=== PATIENT | male | born 1995 | race African-American/Black ===

== ENCOUNTER 2022-09-23 11:24 | Inpatient (IN) | payer OTHER ==
[2022-09-23] VITALS (8 sets, daily range): BP systolic 88–107; BP diastolic 42–72
[~2022-09-23] VITALS: Ht 175.3 cm; Wt 74.4 kg
--- NOTE | 2022-09-23 11:30 | NUR ---
[facility] FOR [facility]CROD[facility] AND WAS INTUBATED FOR PROCEDURE, EXTUBATED 3 HOURS AGO AND DESATTED AND COUGHING BLOOD. PLACED IN BED, AAOX4, SATURATING AT 100% WITH 15LIT O2 VIA NRM.
--- NOTE | 2022-09-23 11:40 | NUR ---
BLOOD DRAWN AND SENT TO LAB
[2022-09-23 12:25] LABS: BASOPHILS % (AUTO) 0.1 % (0.0-2.0); HEMATOCRIT 48 % (39-51); HEMOGLOBIN 15.6 g/dL (13.5-17.5); LYMPHOCYTES # (AUTO) 1.1 K/uL (0.8-4.8); LYMPHOCYTES % (AUTO) 6.5 % (20.0-44.0); MEAN CORPUSCULAR HGB CONC 32 g/dl (31.0-36.0); MEAN CORPUSCULAR VOLUME 98 fL (80-96); MONOCYTES # (AUTO) 0.4 K/uL (0.1-1.30); MONOCYTES % (AUTO) 2.1 % (2.0-12.0); NEUTROPHILS # (AUTO) 15.1 K/uL (1.8-8.9); NEUTROPHILS % (AUTO) 91.3 % (43.0-81.0); PLATELET COUNT (AUTO) 224 K/uL (150-450); RED BLOOD CELL COUNT(AUTO) 4.91 MIL/uL (4.5-6.0); WHITE BLOOD COUNT (AUTO) 16.6 K/uL (4.3-11.0)
[2022-09-23] MEDS ORDERED: MORPHINE SULFATE INJ 4 MG/ML DISP.SYRIN ONE (12:30)
[2022-09-23] MEDS ORDERED: FUROSEMIDE 40 MG/4 ML VIAL IV ONE (12:30)
[2022-09-23] MEDS ORDERED: MORPHINE SULFATE INJ 2 MG/ML DISP.SYRIN IV ONE (12:30)
[2022-09-23] MEDS ORDERED: FUROSEMIDE 40 MG/4 ML VIAL ONE (12:30)
[2022-09-23 12:37] LABS: ABG BASE EXCESS -0.8 mmol/L; ABG OXYGEN SATURATION 98.7 % (92.0-98.5); ABG PH 7.356 (7.350-7.450); ABG PO2 143.1 mmHg (75.0-100.0); AaDO2 523.9 mmHg; MetHb 0.4 % (0.0-1.5); O2Hb 97.3 % (94.0-97.0); SITE, ABG Right Radial; VENT MODE, BG NRB 15 LPM
[2022-09-23 12:41] LABS: CALCIUM, SERUM 8.4 mg/dL (8.5-10.1); POTASSIUM 4.1 mmol/L (3.5-5.1)
--- NOTE | 2022-09-23 12:56 | NUR ---
MOVE SHEET SUBMITTED.
--- NOTE | 2022-09-23 13:13 | NUR ---
[facility] PAGED. AWAITING CALL BACK.
--- NOTE | 2022-09-23 13:34 | NUR ---
SWAB FOR COVID19 SENT TO LAB
[2022-09-23] MEDS ORDERED: MAGNESIUM HYDROXIDE 30 ML UDC PO PRN (15:00)
[2022-09-23] MEDS ORDERED: ONDANSETRON HCL/PF 4 MG/2 ML VIAL IVP PRN (15:00)
[2022-09-23] MEDS ORDERED: MAG HYDROX/AL HYDROX/SIMETH 30 ML UDC PO PRN (15:00)
[2022-09-23] MEDS ORDERED: FUROSEMIDE 20 MG/2 ML VIAL IV ONE (15:00)
[2022-09-23] MEDS ORDERED: Z GUARD REMEDY 4 OZ OINT TP PRN (15:00)
[2022-09-23] MEDS ORDERED: ZOLPIDEM TARTRATE 5 MG TABLET PO PRN (15:00)
[2022-09-23] MEDS ORDERED: ACETAMINOPHEN 325 MG TABLET PO PRN (15:00)
--- NOTE | 2022-09-23 15:55 | NUR ---
RT Placed pt on BIPAP on settings as noted per MD orders post ABG. Pt able to remove mask on his own. Requested to take a break from machine. Pt placed back on NC. No SOB noted at this time. Will continue to monitor
[2022-09-23] MEDS ORDERED: ACETAMINOPHEN 325 MG TABLET ONE (16:09)
--- NOTE | 2022-09-23 16:12 | NUR ---
GOT BED 263.
--- NOTE | 2022-09-23 16:30 | NUR ---
REPORT GIVEN TO YENNIFER MOLINA ROOM 263 FOR CONNOR
--- NOTE | 2022-09-23 16:55 | NUR ---
RN NOTE: ADMISSION PT AND REPORT RECEIVED FROM ED. PT STABLE AT THIS TIME. PT TRANSFERRED WITH ALL BELONGINGS AND IS IN ROOM #263. PT IS ON NC 6L TOLERATING WELL WITH NO SIGNS OF DISTRESS OR LABORED BREATHING O2 SAT 99%. PT IS A/OX4. PT USES URINAL AND SKIN IS INTACT. IV ACCESS L AC 18G WITH NO FLUIDS INFUSING AT THIS TIME. BED IS LOCKED IN LOWEST POSITION X2 BED RAILS UP AND ALL HOSPITAL SAFETY MEASURES ARE IN PLACE. WILL CONTINUE TO MONITOR THIS SHIFT.
--- NOTE | 2022-09-23 18:56 | NUR ---
RN CLOSING NOTE PT IS IN BED LYING DOWN AT THIS TIME. PT IS ON NC 6L TOLERATING WELL WITH NO SIGNS OF DISTRESS OR LABORED BREATHING O2 SAT 100%. PT IS A/OX4. PT USES URINAL -500ML AND SKIN IS INTACT. IV ACCESS L AC 18G WITH NO FLUIDS INFUSING AT THIS TIME. BED IS LOCKED IN LOWEST POSITION X2 BED RAILS UP AND ALL HOSPITAL SAFETY MEASURES ARE IN PLACE. WILL ENDORSE TO [employer] MANAGER NURSE FOR CONNOR.
--- NOTE | 2022-09-23 19:30 | NUR ---
RN OPENING NOTE RECEIVED PT LYING DOWN IN BED. PT ON NC 6L TOLERATING WELL WITH NO SIGNS OF DISTRESS OR LABORED BREATHING O2 SAT 100%. PT IS A/OX4 ABLE TO MAKE NEEDS KNOWN, IV ACCESS AT LAC 18G WITH NO FLUIDS INFUSING AT THIS TIME. BED IS LOCKED IN LOWEST POSITION X2 BED RAILS UP AND ALL HOSPITAL SAFETY MEASURES ARE IN PLACE. PT COMPLAINTS OF PAIN AT THE LOWER BACK RATED 8/10 ON PAIN SCALE, PAIN MEDS GIVEN ORDERED, WILL CONTINUE TO MONITOR THROUGHOUT THE SHIFT.
[2022-09-23] MEDS: HYDROCODONE/APAP 5/325MG TABLET PO PRN (19:40)
[2022-09-23] MEDS: CYCLOBENZAPRINE 10 MG TABLET PO PRN (21:05)
[2022-09-24] VITALS (17 sets, daily range): BP systolic 73–128; BP diastolic 35–71
[2022-09-24] MEDS: HYDROCODONE/APAP 5/325MG TABLET PO PRN ×3 (04:12→14:38)
--- NOTE | 2022-09-24 04:12 | NUR ---
RN NOTE PT COMPLAINTS OF PAIN ON THE LOWER BACK 8/10 ON PAIN SCALE. PRN PAIN MEDS GIVEN ORDERED. WILL CONT TO MONITOR.
[2022-09-24 04:17] LABS: BASOPHILS % (AUTO) 0.1 % (0.0-2.0); HEMATOCRIT 44 % (39-51); HEMOGLOBIN 14.5 g/dL (13.5-17.5); LYMPHOCYTES # (AUTO) 1.2 K/uL (0.8-4.8); LYMPHOCYTES % (AUTO) 4.7 % (20.0-44.0); MEAN CORPUSCULAR HGB CONC 33 g/dl (31.0-36.0); MEAN CORPUSCULAR VOLUME 97 fL (80-96); MONOCYTES # (AUTO) 1.1 K/uL (0.1-1.30); MONOCYTES % (AUTO) 4.4 % (2.0-12.0); NEUTROPHILS # (AUTO) 22.3 K/uL (1.8-8.9); NEUTROPHILS % (AUTO) 90.8 % (43.0-81.0); PLATELET COUNT (AUTO) 200 K/uL (150-450); WHITE BLOOD COUNT (AUTO) 24.6 K/uL (4.3-11.0)
[2022-09-24 04:42] LABS: CALCIUM, SERUM 9.2 mg/dL (8.5-10.1); CREATININE 1.1 mg/dL (0.6-1.3); MAGNESIUM 2.2 mg/dL (1.8-2.4); POTASSIUM 4.4 mmol/L (3.5-5.1)
--- NOTE | 2022-09-24 06:31 | NUR ---
RN CLOSING NOTE PT SLEEPING IN BED BUT EASILY AROUSABLE TO TACTILE STIMULI. PT ON NC 4L TOLERATING WELL WITH NO SIGNS OF DISTRESS OR LABORED BREATHING O2 SAT 99%. PT IS A/OX4 ABLE TO MAKE NEEDS KNOWN, IV ACCESS AT LAC 20G WITH NO FLUIDS INFUSING AT THIS TIME. ALL DUE MEDS GIVEN, KEPT DRY AND CLEAN, SAFETY MEASURES IN PLACED; BED LOCKED AND IN LOWEST POSITION, X2 BED RAILS UP AND CALL LIGHT WITHIN REACH, WILL ENDORSE TO AM SHIFT NURSE FOR CONTINUITY OF CARE.
--- NOTE | 2022-09-24 07:15 | NUR ---
TABLE GAMES DEALER OPENING NOTES: RECEIVED PT IN BED ASLEEP EASILY AROUSABLE.NOT IN ANY DISTRESS , ON O2 4 LITER VIA NASAL CANNULA O2 SAT 98%, SKIN WARM AND DRY TO TOUCH.WILL MONITOR
[2022-09-24] MEDS: PANTOPRAZOLE 40 MG TABLET.DR PO SCH (07:24)
[2022-09-24] MEDS: CYCLOBENZAPRINE 10 MG TABLET PO PRN ×2 (07:33→14:34)
[2022-09-24] MEDS ORDERED: FUROSEMIDE 40 MG/4 ML VIAL IV SCH (09:00)
[2022-09-24] MEDS: LEVOFLOXACIN (250MG) 250 MG TABLET PO SCH (09:27)
--- NOTE | 2022-09-24 09:31 | NUR ---
RN NOTES: PT REPORTED HE STILL COUGHING BLOOD PER DOCTOR PELEG HE MAY COUGH BLOOD FOR COUPLE OF MORE DAYS
--- NOTE | 2022-09-24 12:45 | NUR ---
RN notes: pt is stable ready to transfer to 3rd floor med page unit, alert and oriented x 4, not in any distress, on 4 liters oxygen via nasal cannula, transferred via wheelchair and belonging to room 317, bedside report given to Jerica MOLINA
--- NOTE | 2022-09-24 12:48 | NUR ---
RN NOTES RECEIVED PT FROM OVERLOCK HEMMERJESSE TRAORE VIA WHEELCHAIR, AWAKE, ALERT AND ORIENTED, NO COMPLAINT OF PAIN, NOT IN DISTRESS, ASSISTED TO BED, MADE COMFORTABLE, ROOM SET UP ORIENTATION PROVIDED, VERBALIZED UNDERSTANDING, PER PT HE ALREADY ATE LUNCH, VITALS TAKEN AND RECORDED, NEEDS ATTENDED.
--- NOTE | 2022-09-24 18:40 | NUR ---
RN MS CLOSING NOTES PT RESTING ON BED, NO COMPLAINT OF PAIN, NOT IN DISTRESS, MADE COMFORTABLE. MAINTAINED SL ON LAC #20G. O2 VIA NC AT 2LPM AT BEDSIDE NEEDED. SAFETY AND COMFORT MEASURES IN PLACE: BED ON LOWEST POSITION, BED ALARM WITHIN REACH, SIDE RAILS X 2. NEEDS ATTENDED. WILL ENDORSE CONNOR TO INSPECTOR MISSILE.
--- NOTE | 2022-09-24 19:30 | NUR ---
MS SYLVIA INITIAL NOTES RECEIVED REPORT FROM AM NURSE JAIMIE AND SEEN PATIENT IN BED RESTING WITH EYES CLOSED BUT AROUSE EASILY TO VOICE, PATIENT IS ALERT ORIENTED X4 ON OXYGEN 2 LITERS VIA NC. O2 SAT 99% . RESPIRATION EVEN AND NON-LABORED. KEPT HIM WARM AND COMFORTABLE AT ALL TIMES. PLACE CALL LIGHT AT REACH. WILL CONTINUE MONITORING.
--- NOTE | 2022-09-25 00:43 | NUR ---
ms tablet tester notes checked pt remains lying in bed on prone position , respiration even and non-labored. not in any distress noted. kept him warm and comfortable at all times.
[2022-09-25 05:52] LABS: BASOPHILS % (AUTO) 0.2 % (0.0-2.0); EOSINOPHILS % (AUTO) 0.2 % (0.0-6.0); HEMATOCRIT 42 % (39-51); LYMPHOCYTES # (AUTO) 2.1 K/uL (0.8-4.8); LYMPHOCYTES % (AUTO) 19.3 % (20.0-44.0); MEAN CORPUSCULAR HGB CONC 33 g/dl (31.0-36.0); MEAN CORPUSCULAR VOLUME 97 fL (80-96); MONOCYTES % (AUTO) 8.6 % (2.0-12.0); NEUTROPHILS % (AUTO) 71.7 % (43.0-81.0); PLATELET COUNT (AUTO) 184 K/uL (150-450); RED BLOOD CELL COUNT(AUTO) 4.36 MIL/uL (4.5-6.0); WHITE BLOOD COUNT (AUTO) 11.1 K/uL (4.3-11.0)
[2022-09-25 06:36] LABS: MAGNESIUM 2.2 mg/dL (1.8-2.4); PHOSPHORUS 3.6 mg/dL (2.5-4.9); POTASSIUM 3.8 mmol/L (3.5-5.1)
[2022-09-25 07:00] VITALS: BP 112/68
--- NOTE | 2022-09-25 07:30 | NUR ---
MS RN OPENING NOTES RECEIVED PT IN BED AWAKE, RESPIRATION EVEN AND NON-LABORED. STABLE AND COMFORTABLE WILL CONTINUE TO MONITOR PATIENT.
--- NOTE | 2022-09-25 07:34 | NUR ---
MS SPINNING FRAME TENDER CLOSING NOTES PT REMAINS RESTING AT THIS TIME. RESPIRATION EVEN AND NON-LABORED.STABLE THROUGHOUT THE NIGHT. SLEPT WELL. KEPT HIM WARM AND COMFORTABLE AT ALL TIMES. ENDORSE TO AM NURSE FOR CONTINUITY OF CARE. PLACE ALL LIGHT AT REACH.
[2022-09-25] MEDS: PANTOPRAZOLE 40 MG TABLET.DR PO SCH (07:43)
[2022-09-25] MEDS: LEVOFLOXACIN (250MG) 250 MG TABLET PO SCH (09:05)
[2022-09-25] MEDS: HYDROCODONE/APAP 5/325MG TABLET PO PRN (13:03)
[2022-09-25] MEDS: CYCLOBENZAPRINE 10 MG TABLET PO PRN (13:03)
--- NOTE | 2022-09-25 14:30 | NUR ---
PATIENT DISCHARGED TO HOME IN STABLE CONDITION, A/O X4 ABLE TO MAKE NEEDS KNOWN. PT IS BREATHING EVENLY AT 96 PER OXYGEN SATURATION TEST, NO SIGNS OF DISTRESS NOTED. PT HAS NO COMPLAINS OF PAIN AT THIS TIME. ALL BELONGINGS ACCOUNTED FOR AND SIGNED BY PATIENT. PT LEFT IN STABLE CONDITION ACCOMPANIED BY HIS MOM. CHARGE NURSE AWARE OF THE DISCHARGE
== END 2022-09-25 16:31 | disposition home or self-care (01) | DRG 143 ==
LOC: ER 11:27 → TRANSITION 16:01 → ICU 16:15 → MED 09-24 14:24
PROVIDERS: ADMIT Student in an Organized Health Care Education/Training Program; ATTEND Student in an Organized Health Care Education/Training Program
PROC: 5A09357 Assistance with Respiratory Ventilation, Less than 24 Consecutive Hours, Continuous Positive Airway Pressure (ICD-10-PCS; principal; 2022-09-23)
DX: J81.0 Acute pulmonary edema (principal); J96.01 Acute respiratory failure with hypoxia; E87.1 Hypo-osmolality and hyponatremia; R04.2 Hemoptysis; Z20.822 Contact with and (suspected) exposure to COVID-19; Y83.8 Other surgical procedures as the cause of abnormal reaction of the patient, or of later complication, without mention of misadventure at the time of the procedure; Y92.530 Ambulatory surgery center as the place of occurrence of the external cause; F12.90 Cannabis use, unspecified, uncomplicated; D72.829 Elevated white blood cell count, unspecified; Z98.890 Other specified postprocedural states; F17.200 Nicotine dependence, unspecified, uncomplicated
CPT/HCPCS: 36415; 36600; 71045-TC; 80048-TC; 82803-TC; 83735-TC; 84100-TC; 85025-TC; 85610-TC; 85730-TC; 86850-TC; 87081-TC; 94660; 94799-TC; C9803; G0378; J1940; J2270